=== PATIENT | male | born 1960 | race Caucasian/White ===

== ENCOUNTER 2018-01-26 10:46 | Inpatient (IN) | payer MEDICAID, OTHER ==
[2018-01-26 12:14] LABS: ADD MAN DIFF? NO
[2018-01-26 12:17] LABS: ABNORMAL IP MESSAGE 1; BASOPHILS % 0.2 % (0.0-2.0); HEMATOCRIT 35.2 % (42.0-52.0); LYMPHOCYTES % 8.1 % (15.0-51.0); MEAN CORPUSCULAR HEMOGLOBIN 29.7 pg (29.0-33.0); MEAN CORPUSCULAR HGB CONC 34.1 g/dl (32.0-37.0); MEAN CORPUSCULAR VOLUME 87.1 fl (82.0-101.0); MEAN PLATELET VOLUME 9.5 fl (7.4-10.4); MONOCYTE # 1.3 10^3/ul (0.3-0.9); MONOCYTES % 10.9 % (0.0-11.0); NEUTROPHIL # 9.9 10^3/ul (1.6-7.5); NEUTROPHILS % 80.1 % (39.0-77.0); PLATELET COUNT 70 10^3/UL (140-415); POSITIVE DIFF @See below; RED BLOOD COUNT 4.04 10^6/ul (4.70-6.10); RED CELL DISTRIBUTION WIDTH 13.2 % (11.5-14.5)
[2018-01-26 12:17] LABS: WHITE BLOOD COUNT 12.3 10^3/ul (4.8-10.8)
[2018-01-26] MEDS: PIPER-TAZO 3.375 GM IV (PMX) 100 ML IVPB ×3 (12:32→23:26)
[2018-01-26] MEDS: SOD CHLORIDE 0.9% IV (12:32)
[2018-01-26] MEDS: KETOROLAC 15 MG INJ IV (12:33)
[2018-01-26 12:35] LABS: ALANINE AMINOTRANSFERASE 47 IU/L (13-69); ALBUMIN 3.8 g/dl (3.3-4.9); ALBUMIN/GLOBULIN RATIO 0.95; ALKALINE PHOSPHATASE 180 IU/L (42-121); ANION GAP 14 (5-13); ASPARTATE AMINO TRANSFERASE 66 IU/L (15-46); BILIRUBIN,INDIRECT 1.5 mg/dl (0-1.1); BILIRUBIN,TOTAL 1.5 mg/dl (0.2-1.3); BLOOD UREA NITROGEN 8 mg/dl (7-20); CALCIUM 8.8 mg/dl (8.4-10.2); CARBON DIOXIDE 19 mmol/L (21-31); CHLORIDE 100 mmol/L (97-110); CREATININE 0.58 mg/dl (0.61-1.24); Estimated GFR > 60 mL/min (>60); GLUCOSE 124 mg/dl (70-220); POTASSIUM 3.6 mmol/L (3.5-5.1); SODIUM 133 mmol/L (135-144); TOTAL PROTEIN 7.8 g/dl (6.1-8.1)
[2018-01-26 12:36] LABS: INR 1.21; PROTIME 15.5 Sec (11.9-14.9); PT RATIO 1.2
[2018-01-26 12:37] LABS: PARTIAL THROMBOPLASTIN TIME 29.7 Sec (23.0-35.0)
[2018-01-26] MEDS: ACETAMINOPHEN 325 MG TAB PO ×2 (12:44→20:23)
[2018-01-26 12:45] LABS: TROPONIN-I < 0.012 ng/ml (0.000-0.120)
[2018-01-26] MEDS: VANCOMYCIN 1 GM (PMX) 250 ML IVPB (13:02)
[2018-01-26 13:28] LABS: ADD UMIC NO; UR ASCORBIC ACID NEGATIVE (NEGATIVE); UR BILIRUBIN (Dip) NEGATIVE (NEGATIVE); UR BLOOD (Dip) NEGATIVE (NEGATIVE); UR CLARITY CLEAR (CLEAR); UR COLOR YELLOW (YELLOW); UR GLUCOSE (Dip) NEGATIVE (NEGATIVE); UR KETONES (Dip) TRACE mg/dL (NEGATIVE); UR LEUKOCYTE ESTERASE (Dip) NEGATIVE Leu/ul (NEGATIVE); UR NITRITE (Dip) NEGATIVE (NEGATIVE); UR SPECIFIC GRAVITY (Dip) 1.003 (1.003-1.030); UR TOTAL PROTEIN (Dip) NEGATIVE (NEGATIVE); UR UROBILINOGEN (Dip) NEGATIVE (NEGATIVE)
[2018-01-26] MEDS ORDERED: morphine 2 MG INJ IV (13:30)
[2018-01-26] MEDS ORDERED: ONDANSETRON 4 MG INJ IV (13:30)
[2018-01-26] MEDS ORDERED: NACL 0.9% 3 ML SYG IV (13:30)
[2018-01-26] MEDS ORDERED: VANCOMYCIN IV PER PHARMACY XX (13:30)
[2018-01-26 13:53] LABS: AMPHETAMINE/METHAMPHETAMINE Negative (NEGATIVE); BARBITURATES Negative (NEGATIVE); BENZODIAZEPINES Negative (NEGATIVE); CANNABINOIDS Negative (NEGATIVE); COCAINE Negative (NEGATIVE); OPIATES Negative (NEGATIVE)
[2018-01-26] MEDS ORDERED: ALBUTEROL/IPRATROPIUM (NEB) 3 ML AMP HHN (14:00)
[2018-01-26 15:26] LABS: C-REACTIVE PROTEIN 6.2 mg/dl (0.0-0.9)
[2018-01-26 16:00] LABS: HEMOGLOBIN A1C 5.5 % (0-5.9)
[2018-01-26 16:15] LABS: ERYTHROCYTE SEDIMENTATION RATE 57 mm/Hr (0-20)
[2018-01-26] MEDS: HEPARIN 5,000 UNIT/1 ML VIAL SC ×2 (17:06→21:41)
[2018-01-26] MEDS: SOD CHLORIDE 0.9% 1,000 ML IV (17:08)
[2018-01-26] MEDS: FAMOTIDINE 20 MG TAB PO (20:23)
[2018-01-27] MEDS: VANCOMYCIN 1.25 GM in SOD CHLORIDE 0.9% 250 ML IVPB (00:15)
[2018-01-27] MEDS: IBUPROFEN 600 MG TAB PO ×2 (00:17→23:14)
[2018-01-27] MEDS: SOD CHLORIDE 0.9% 1,000 ML IV (02:27)
[2018-01-27] MEDS: PIPER-TAZO 3.375 GM IV (PMX) 100 ML IVPB (05:30)
[2018-01-27 06:40] LABS: ADD MAN DIFF? NO
[2018-01-27 06:47] LABS: ABNORMAL IP MESSAGE 1; BASOPHILS % 0.3 % (0.0-2.0); EOSINOPHILS # 0.1 10^3/ul (0.0-0.5); EOSINOPHILS % 0.6 % (0.0-7.0); HEMATOCRIT 35.3 % (42.0-52.0); HEMOGLOBIN 11.7 g/dl (14.0-18.0); LYMPHOCYTES # 1.6 10^3/ul (0.8-2.9); LYMPHOCYTES % 16.7 % (15.0-51.0); MEAN CORPUSCULAR HEMOGLOBIN 30.2 pg (29.0-33.0); MEAN CORPUSCULAR HGB CONC 33.1 g/dl (32.0-37.0); MEAN PLATELET VOLUME 10.1 fl (7.4-10.4); MONOCYTE # 1.2 10^3/ul (0.3-0.9); MONOCYTES % 12.4 % (0.0-11.0); NEUTROPHIL # 6.5 10^3/ul (1.6-7.5); NEUTROPHILS % 69.4 % (39.0-77.0); PLATELET COUNT 64 10^3/UL (140-415); POSITIVE DIFF @See below; RED BLOOD COUNT 3.88 10^6/ul (4.70-6.10); RED CELL DISTRIBUTION WIDTH 13.4 % (11.5-14.5)
[2018-01-27 06:47] LABS: WHITE BLOOD COUNT 9.4 10^3/ul (4.8-10.8)
[2018-01-27 07:50] LABS: ALANINE AMINOTRANSFERASE 37 IU/L (13-69); ALBUMIN/GLOBULIN RATIO 0.81; ALKALINE PHOSPHATASE 138 IU/L (42-121); ANION GAP 8 (5-13); ASPARTATE AMINO TRANSFERASE 48 IU/L (15-46); BILIRUBIN,INDIRECT 1.8 mg/dl (0-1.1); BILIRUBIN,TOTAL 1.8 mg/dl (0.2-1.3); BLOOD UREA NITROGEN 8 mg/dl (7-20); CALCIUM 8.5 mg/dl (8.4-10.2); CARBON DIOXIDE 25 mmol/L (21-31); CHLORIDE 106 mmol/L (97-110); CREATININE 0.59 mg/dl (0.61-1.24); Estimated GFR > 60 mL/min (>60); GLUCOSE 101 mg/dl (70-220); POTASSIUM 3.8 mmol/L (3.5-5.1); SODIUM 139 mmol/L (135-144); TOTAL PROTEIN 6.7 g/dl (6.1-8.1)
[2018-01-27] MEDS: HEPARIN 5,000 UNIT/1 ML VIAL SC ×2 (09:00→21:11)
[2018-01-27] MEDS: FAMOTIDINE 20 MG TAB PO ×2 (09:53→21:08)
[2018-01-27] MEDS: ALBUTEROL/IPRATROPIUM (NEB) 3 ML AMP HHN ×2 (13:51→19:38)
[2018-01-27] MEDS: DOXYCYCLINE 100 MG in SOD CHLORIDE 0.9% 250 ML IVPB ×2 (14:03→21:09)
[2018-01-27] MEDS: HYDROCODONE/APAP (5/325) TAB PO (14:03)
[2018-01-27] MEDS: LEVOFLOXACIN 500MG/D5W (PMX) 100 ML IVPB (18:08)
[2018-01-27 18:30] LABS: ERYTHROCYTE SEDIMENTATION RATE 66 mm/Hr (0-20)
[2018-01-27 19:02] LABS: C-REACTIVE PROTEIN 15.3 mg/dl (0.0-0.9)
[2018-01-27] MEDS ORDERED: CIPROFLOXACIN 400MG/D5W 200 ML IVPB (21:00)
[2018-01-27] MEDS: ACETAMINOPHEN 325 MG TAB PO (21:08)
[2018-01-28 06:53] LABS: ADD MAN DIFF? NO
[2018-01-28 06:59] LABS: ABNORMAL IP MESSAGE 1; BASOPHILS % 0.3 % (0.0-2.0); EOSINOPHILS # 0.1 10^3/ul (0.0-0.5); EOSINOPHILS % 1.3 % (0.0-7.0); HEMATOCRIT 35.1 % (42.0-52.0); HEMOGLOBIN 11.6 g/dl (14.0-18.0); LYMPHOCYTES # 1.5 10^3/ul (0.8-2.9); LYMPHOCYTES % 19.3 % (15.0-51.0); MEAN CORPUSCULAR VOLUME 90.7 fl (82.0-101.0); MONOCYTE # 0.9 10^3/ul (0.3-0.9); MONOCYTES % 11.5 % (0.0-11.0); NEUTROPHIL # 5.2 10^3/ul (1.6-7.5); NEUTROPHILS % 66.8 % (39.0-77.0); POSITIVE DIFF @See below; RED BLOOD COUNT 3.87 10^6/ul (4.70-6.10); RED CELL DISTRIBUTION WIDTH 13.7 % (11.5-14.5)
[2018-01-28 06:59] LABS: WHITE BLOOD COUNT 7.8 10^3/ul (4.8-10.8)
[2018-01-28 07:01] LABS: PLATELET COUNT 84 10^3/UL (140-415)
[2018-01-28 07:49] LABS: ANION GAP 11 (5-13); BLOOD UREA NITROGEN 10 mg/dl (7-20); CALCIUM 8.5 mg/dl (8.4-10.2); CARBON DIOXIDE 23 mmol/L (21-31); CHLORIDE 107 mmol/L (97-110); CREATININE 0.61 mg/dl (0.61-1.24); Estimated GFR > 60 mL/min (>60); GLUCOSE 92 mg/dl (70-220); PHOSPHORUS 3.5 mg/dl (2.5-4.9); POTASSIUM 3.5 mmol/L (3.5-5.1); SODIUM 141 mmol/L (135-144)
[2018-01-28] MEDS: ALBUTEROL/IPRATROPIUM (NEB) 3 ML AMP HHN ×3 (08:12→20:01)
[2018-01-28] MEDS: FAMOTIDINE 20 MG TAB PO ×2 (08:20→20:31)
[2018-01-28] MEDS: HEPARIN 5,000 UNIT/1 ML VIAL SC ×2 (08:24→22:01)
[2018-01-28] MEDS: DOXYCYCLINE 100 MG in SOD CHLORIDE 0.9% 250 ML IVPB ×2 (09:03→20:32)
[2018-01-28] MEDS: HYDROCODONE/APAP (5/325) TAB PO (13:33)
[2018-01-28] MEDS: LEVOFLOXACIN 500MG/D5W (PMX) 100 ML IVPB (17:02)
[2018-01-28 17:48] LABS: C-REACTIVE PROTEIN 14.3 mg/dl (0.0-0.9)
[2018-01-28 19:30] LABS: ERYTHROCYTE SEDIMENTATION RATE 67 mm/Hr (0-20)
[2018-01-28] MEDS: morphine LIQ (10 MG/5 ML) CUP PO (20:47)
[2018-01-28] MEDS: LORAZEPAM 2 MG INJ IV (22:01)
[2018-01-29 05:35] LABS: ADD MAN DIFF? NO
[2018-01-29 05:58] LABS: ABNORMAL IP MESSAGE 1; BASOPHILS % 0.6 % (0.0-2.0); EOSINOPHILS # 0.2 10^3/ul (0.0-0.5); EOSINOPHILS % 2.4 % (0.0-7.0); HEMATOCRIT 33.8 % (42.0-52.0); HEMOGLOBIN 11.2 g/dl (14.0-18.0); LYMPHOCYTES # 1.8 10^3/ul (0.8-2.9); LYMPHOCYTES % 27.8 % (15.0-51.0); MEAN CORPUSCULAR HEMOGLOBIN 30.2 pg (29.0-33.0); MEAN CORPUSCULAR HGB CONC 33.1 g/dl (32.0-37.0); MEAN CORPUSCULAR VOLUME 91.1 fl (82.0-101.0); MEAN PLATELET VOLUME 11.1 fl (7.4-10.4); MONOCYTE # 0.8 10^3/ul (0.3-0.9); MONOCYTES % 12.4 % (0.0-11.0); NEUTROPHIL # 3.7 10^3/ul (1.6-7.5); NEUTROPHILS % 56.3 % (39.0-77.0); PLATELET COUNT 82 10^3/UL (140-415); POSITIVE DIFF @See below; RED BLOOD COUNT 3.71 10^6/ul (4.70-6.10); RED CELL DISTRIBUTION WIDTH 13.3 % (11.5-14.5)
[2018-01-29 05:58] LABS: WHITE BLOOD COUNT 6.5 10^3/ul (4.8-10.8)
[2018-01-29 06:36] LABS: ANION GAP 7 (5-13); BLOOD UREA NITROGEN 7 mg/dl (7-20); CALCIUM 8.4 mg/dl (8.4-10.2); CARBON DIOXIDE 24 mmol/L (21-31); CHLORIDE 105 mmol/L (97-110); CREATININE 0.57 mg/dl (0.61-1.24); Estimated GFR > 60 mL/min (>60); GLUCOSE 90 mg/dl (70-220); MAGNESIUM 1.9 mg/dl (1.7-2.5); PHOSPHORUS 3.9 mg/dl (2.5-4.9); POTASSIUM 3.7 mmol/L (3.5-5.1); SODIUM 136 mmol/L (135-144)
[2018-01-29] MEDS: ALBUTEROL/IPRATROPIUM (NEB) 3 ML AMP HHN ×3 (08:17→19:53)
[2018-01-29] MEDS: HEPARIN 5,000 UNIT/1 ML VIAL SC ×2 (09:28→21:10)
[2018-01-29] MEDS: FAMOTIDINE 20 MG TAB PO ×2 (09:31→21:09)
[2018-01-29] MEDS: DOXYCYCLINE 100 MG in SOD CHLORIDE 0.9% 250 ML IVPB ×2 (09:31→21:12)
[2018-01-29] MEDS: morphine LIQ (10 MG/5 ML) CUP PO ×2 (10:12→18:13)
[2018-01-29] MEDS: LEVOFLOXACIN 500MG/D5W (PMX) 100 ML IVPB (14:36)
[2018-01-29] MEDS ORDERED: LEVOFLOXACIN 500 MG TAB PO (15:00)
[2018-01-29 16:23] LABS: C-REACTIVE PROTEIN 7.9 mg/dl (0.0-0.9)
[2018-01-29 17:59] LABS: ERYTHROCYTE SEDIMENTATION RATE 80 mm/Hr (0-20)
[2018-01-29] MEDS ORDERED: DOXYCYCLINE 100 MG TAB PO (21:00)
[2018-01-30 05:43] LABS: ADD MAN DIFF? NO
[2018-01-30 05:44] LABS: BASOPHILS % 0.6 % (0.0-2.0); EOSINOPHILS # 0.2 10^3/ul (0.0-0.5); EOSINOPHILS % 3.4 % (0.0-7.0); HEMATOCRIT 35.1 % (42.0-52.0); HEMOGLOBIN 11.5 g/dl (14.0-18.0); LYMPHOCYTES # 1.5 10^3/ul (0.8-2.9); LYMPHOCYTES % 30.2 % (15.0-51.0); MEAN CORPUSCULAR HEMOGLOBIN 29.7 pg (29.0-33.0); MEAN CORPUSCULAR HGB CONC 32.8 g/dl (32.0-37.0); MEAN CORPUSCULAR VOLUME 90.7 fl (82.0-101.0); MEAN PLATELET VOLUME 9.6 fl (7.4-10.4); MONOCYTE # 0.7 10^3/ul (0.3-0.9); MONOCYTES % 13.2 % (0.0-11.0); NEUTROPHIL # 2.6 10^3/ul (1.6-7.5); NEUTROPHILS % 52.2 % (39.0-77.0); PLATELET COUNT 148 10^3/UL (140-415); RED BLOOD COUNT 3.87 10^6/ul (4.70-6.10); RED CELL DISTRIBUTION WIDTH 13.5 % (11.5-14.5)
[2018-01-30 05:44] LABS: WHITE BLOOD COUNT 4.9 10^3/ul (4.8-10.8)
[2018-01-30] MEDS ORDERED: LEVOFLOXACIN 500 MG TAB PO (06:00)
[2018-01-30 06:25] LABS: ANION GAP 7 (5-13); BLOOD UREA NITROGEN 8 mg/dl (7-20); CALCIUM 8.8 mg/dl (8.4-10.2); CARBON DIOXIDE 28 mmol/L (21-31); CHLORIDE 105 mmol/L (97-110); CREATININE 0.66 mg/dl (0.61-1.24); Estimated GFR > 60 mL/min (>60); GLUCOSE 104 mg/dl (70-220); PHOSPHORUS 4.2 mg/dl (2.5-4.9); POTASSIUM 4.3 mmol/L (3.5-5.1); SODIUM 140 mmol/L (135-144)
[2018-01-30] MEDS: ALBUTEROL/IPRATROPIUM (NEB) 3 ML AMP HHN ×3 (08:04→19:49)
[2018-01-30] MEDS: HEPARIN 5,000 UNIT/1 ML VIAL SC ×2 (08:45→20:06)
[2018-01-30] MEDS: FAMOTIDINE 20 MG TAB PO ×2 (08:45→20:09)
[2018-01-30] MEDS: DOXYCYCLINE 100 MG in SOD CHLORIDE 0.9% 250 ML IVPB ×2 (08:49→21:35)
[2018-01-30] MEDS: morphine LIQ (10 MG/5 ML) CUP PO ×2 (08:49→20:03)
[2018-01-30] MEDS: LEVOFLOXACIN 500MG/D5W (PMX) 100 ML IVPB (14:48)
[2018-01-30] MEDS: ACETAMINOPHEN 325 MG TAB PO (21:43)
[2018-01-31 05:21] LABS: ADD MAN DIFF? NO
[2018-01-31 05:24] LABS: WHITE BLOOD COUNT 4.8 10^3/ul (4.8-10.8)
[2018-01-31 05:24] LABS: BASOPHILS % 0.8 % (0.0-2.0); EOSINOPHILS # 0.2 10^3/ul (0.0-0.5); EOSINOPHILS % 4.1 % (0.0-7.0); HEMATOCRIT 35.2 % (42.0-52.0); HEMOGLOBIN 11.5 g/dl (14.0-18.0); LYMPHOCYTES # 1.7 10^3/ul (0.8-2.9); LYMPHOCYTES % 34.8 % (15.0-51.0); MEAN CORPUSCULAR HGB CONC 32.7 g/dl (32.0-37.0); MEAN CORPUSCULAR VOLUME 91.9 fl (82.0-101.0); MEAN PLATELET VOLUME 9.5 fl (7.4-10.4); MONOCYTE # 0.7 10^3/ul (0.3-0.9); MONOCYTES % 13.9 % (0.0-11.0); NEUTROPHIL # 2.2 10^3/ul (1.6-7.5); NEUTROPHILS % 45.8 % (39.0-77.0); PLATELET COUNT 183 10^3/UL (140-415); RED BLOOD COUNT 3.83 10^6/ul (4.70-6.10); RED CELL DISTRIBUTION WIDTH 13.6 % (11.5-14.5)
[2018-01-31 05:45] LABS: ANION GAP 10 (5-13); BLOOD UREA NITROGEN 8 mg/dl (7-20); CALCIUM 8.9 mg/dl (8.4-10.2); CARBON DIOXIDE 27 mmol/L (21-31); CHLORIDE 106 mmol/L (97-110); CREATININE 0.58 mg/dl (0.61-1.24); Estimated GFR > 60 mL/min (>60); GLUCOSE 106 mg/dl (70-220); PHOSPHORUS 4.7 mg/dl (2.5-4.9); POTASSIUM 3.8 mmol/L (3.5-5.1); SODIUM 143 mmol/L (135-144)
[2018-01-31] MEDS: FAMOTIDINE 20 MG TAB PO (08:33)
[2018-01-31] MEDS: DOXYCYCLINE 100 MG in SOD CHLORIDE 0.9% 250 ML IVPB (08:34)
[2018-01-31] MEDS: ACETAMINOPHEN 325 MG TAB PO (08:34)
[2018-01-31] MEDS: ALBUTEROL/IPRATROPIUM (NEB) 3 ML AMP HHN (08:35)
[2018-01-31] MEDS: HEPARIN 5,000 UNIT/1 ML VIAL SC (08:36)
[2018-01-31] MEDS ORDERED: DOXYCYCLINE 100 MG TAB PO (21:00)
== END 2018-01-31 13:14 | disposition home or self-care (01) | DRG 872 ==
LOC: E/R 10:46 → PP2 13:07
PROC: 0HBMXZZ Excision of Right Foot Skin, External Approach (ICD-10-PCS; principal; 2018-01-26)
PROC: 0HBRXZZ Excision of Toe Nail, External Approach (ICD-10-PCS; 2018-01-27)
PROC: 0HBRXZZ Excision of Toe Nail, External Approach (ICD-10-PCS; 2018-01-27)
PROC: 0HBRXZZ Excision of Toe Nail, External Approach (ICD-10-PCS; 2018-01-27)
PROC: 0HBRXZZ Excision of Toe Nail, External Approach (ICD-10-PCS; 2018-01-27)
PROC: 0HBRXZZ Excision of Toe Nail, External Approach (ICD-10-PCS; 2018-01-27)
PROC: 0HBRXZZ Excision of Toe Nail, External Approach (ICD-10-PCS; 2018-01-27)
PROC: 0HBRXZZ Excision of Toe Nail, External Approach (ICD-10-PCS; 2018-01-27)
PROC: 0HBRXZZ Excision of Toe Nail, External Approach (ICD-10-PCS; 2018-01-27)
PROC: 0HBRXZZ Excision of Toe Nail, External Approach (ICD-10-PCS; 2018-01-27)
PROC: 0HBRXZZ Excision of Toe Nail, External Approach (ICD-10-PCS; 2018-01-27)
DX: A41.9 Sepsis, unspecified organism (principal); L03.115 Cellulitis of right lower limb; L97.511 Non-pressure chronic ulcer of other part of right foot limited to breakdown of skin; R05 Cough; D64.9 Anemia, unspecified; B35.1 Tinea unguium; S90.221A Contusion of right lesser toe(s) with damage to nail, initial encounter; X58.XXXA Exposure to other specified factors, initial encounter; Y93.89 Activity, other specified; Y92.830 Public park as the place of occurrence of the external cause; Y99.8 Other external cause status; Z59.0 Homelessness
CPT/HCPCS: 36415; 71045; 73630-50; 73721; 80048; 80053; 80307; 81003; 83036; 83605; 83735; 84100; 84484; 85025; 85610; 85651; 85730; 86140; 87040; 87070; 87081; 87086; 87400; 90686; 93005; 93971; 94640; 94664; 96374; 96375; 99291-25